=== PATIENT | male | born 1960 | race Asian ===

== ENCOUNTER 2019-12-20 17:45 | Emergency (ER) | payer OTHER ==
[2019-12-20 17:56] VITALS: BP 150/87
--- NOTE | 2019-12-20 17:56 | Emergency Department Report ---
Blank Doc - Documentation Documentation: 59-year-old male that presents with abdominal pain. This initial assessment/diagnostic orders/clinical plan/treatment(s) is/are subject to change based on patient's health status, clinical progression and re- assessment by fellow clinical providers in the ED. Further treatment and workup at subsequent clinical providers discretion. Patient/guardians urged not to elope from the ED as their condition may be serious if not clinically assessed and managed. Initial orders include: 1- Patient sent to [facility] for further evaluation and treatment 2- labs 3- UA
[2019-12-20] MEDS ORDERED: DICYCLOMINE 10 MG/5 ML ORAL LIQD PO ONE (20:23)
[2019-12-20] MEDS ORDERED: FAMOTIDINE 20 MG TAB PO ONE (20:23)
--- NOTE | 2019-12-20 20:25 | Emergency Department Report ---
ED Abdominal Pain HPI - General Chief Complaint: Abdominal Pain Stated Complaint: STOMACH PAIN Time Seen by Provider: 12/20/19 17:55 Source: patient Mode of arrival: Ambulatory Limitations: No Limitations - History of Present Illness Initial Comments: This is a 59-year-old male who presents the ED complaining of upper abdominal pain that started this morning after taking his blood pressure medications. Patient states he took 2 pills this morning and shortly after that started experiencing upper abdominal pain. Patient states he was not able to eat patient tried to eat soup and was unable to. Patient denies nausea vomiting or diarrhea. Patient states pain is localized to the upper abdominal subumbilical region with no radiation elsewhere. Patient does have a recent surgery history of heart surgery that was completed last year. Otherwise patient has no other medical history other than hypertension which is controlled with medication. He denies fever/chills/shortness of breath chest pain or any other symptoms MD Complaint: abdominal pain - Related Data Previous Rx's Medication Instructions Recorded Last Taken Type Dicyclomine [Bentyl] 20 mg PO TID #30 tablet 12/20/19 Unknown Rx Ondansetron [Zofran Odt] 4 mg PO Q8HR #20 tab.rapdis 12/20/19 Unknown Rx Allergies Allergy/AdvReac Type Severity Reaction Status Date / Time No Known Allergies Allergy Verified 12/20/19 20:27 ED Review of Systems ROS: Stated complaint: STOMACH PAIN Other details as noted in HPI Comment: All other systems reviewed and negative ED Past Medical Hx - Past Medical History Hx Hypertension: Yes - Surgical History Hx Open Heart Surgery: Yes (2019) - Social History Smoking Status: Never Smoker Substance Use Type: None - Medications Home Medications: Home Medications Medication Instructions Recorded Confirmed Last Taken Type Dicyclomine [Bentyl] 20 mg PO TID #30 tablet 12/20/19 Unknown Rx Ondansetron [Zofran Odt] 4 mg PO Q8HR #20 tab.rapdis 12/20/19 Unknown Rx ED Physical Exam - General Limitations: No Limitations General appearance: alert, in no apparent distress - Head Head exam: Present: atraumatic, normocephalic - Eye Eye exam: Present: normal appearance - ENT ENT exam: Present: mucous membranes moist - Neck Neck exam: Present: normal inspection - Respiratory Respiratory exam: Present: normal lung sounds bilaterally. Absent: respiratory distress - Cardiovascular Cardiovascular Exam: Present: regular rate, normal rhythm. Absent: systolic murmur, diastolic murmur, rubs, gallop - GI/Abdominal GI/Abdominal exam: Present: soft, distended, tenderness (Mild to palpation of the right upper abdomen), guarding, normal bowel sounds. Absent: organomegaly, mass, bruit - Rectal Rectal exam: Present: deferred - Extremities Exam Extremities exam: Present: normal inspection - Back Exam Back exam: Present: normal inspection - Neurological Exam Neurological exam: Present: alert, oriented X3 - Psychiatric Psychiatric exam: Present: normal affect, normal mood - Skin Skin exam: Present: warm, dry, intact, normal color. Absent: rash ED Course Vital Signs 12/20/19 12/20/19 17:52 23:12 Temperature 97.9 F Pulse Rate 84 86 Respiratory 16 16 Rate Blood Pressure 150/87 O2 Sat by Pulse 99 99 Oximetry ED Medical Decision Making - Lab Data Result diagrams: 12/20/19 20:12/20/19 20: Laboratory Last Values WBC 11.1 K/mm3 (4.5-11.0) H 12/20/19 20: RBC 5.67 M/mm3 (3.65-5.03) H 12/20/19 20: Hgb 19.6 gm/dl (11.8-15.2) H 12/20/19 20: Hct 57.2 % (35.5-45.6) H 12/20/19 20: MCV 101 fl (84-94) H 12/20/19 20: MCH 35 pg (28-32) H 12/20/19 20: MCHC 34 % (32-34) 12/20/19 20: RDW 12.7 % (13.2-15.2) L 12/20/19 20: Plt Count 187 K/mm3 (140-440) 12/20/19 20: Lymph % (Auto) 13.9 % (13.4-35.0) 12/20/19 20: [place] % (Auto) 8.2 % (0.0-7.3) H 12/20/19 20: Eos % (Auto) 1.0 % (0.0-4.3) 12/20/19 20: Baso % (Auto) 0.5 % (0.0-1.8) 12/20/19 20: Lymph # 1.5 K/mm3 (1.2-5.4) 12/20/19 20: [place] # 0.9 K/mm3 (0.0-0.8) H 12/20/19 20: Eos # 0.1 K/mm3 (0.0-0.4) 12/20/19 20: Baso # 0.1 K/mm3 (0.0-0.1) 12/20/19 20: Seg Neutrophils % 76.4 % (40.0-70.0) H 12/20/19 20: Seg Neutrophils # 8.4 K/mm3 (1.8-7.7) H 12/20/19 20: Sodium 136 mmol/L (137-145) L 12/20/19 20: Potassium 4.6 mmol/L (3.6-5.0) 12/20/19: Chloride 99.1 mmol/L (98-107) 12/20/19: Carbon Dioxide 20 mmol/L (22-30) L 12/20/19 20: Anion Gap 22 mmol/L 12/20/19 20: BUN 19 mg/dL (9-20) 12/20/19 20: Creatinine 1.3 mg/dL (0.8-1.5) 12/20/19 20: Estimated GFR 57 ml/min 12/20/19 20: BUN/Creatinine Ratio 15 % 12/20/19 20: Glucose 102 mg/dL (75-100) H 12/20/19 20: Calcium 9.7 mg/dL (8.4-10.2) 12/20/19 20: Total Bilirubin 0.70 mg/dL (0.1-1.2) 12/20/19 20: AST 47 units/L (5-40) H 12/20/19 20: ALT 33 units/L (7-56) 12/20/19 20: Alkaline Phosphatase 49 units/L (35-129) 12/20/19 20: Total Protein 8.0 g/dL (6.3-8.2) 12/20/19 20: Albumin 4.3 g/dL (3.9-5) 12/20/19 20: Albumin/Globulin Ratio 1.2 % 12/20/19 20: Lipase 128 units/L (13-60) H 12/20/19 20: Urine Color Yellow (Yellow) 12/20/19: Urine Turbidity Clear (Clear) 12/20/19: Urine pH 6.0 (5.0-7.0) 12/20/19: Ur Specific [place] 1.019 (1.003-1.030) 12/20/19 Urine Protein <15 mg/dl mg/dL (Negative) 12/20/19: Urine Glucose (UA) Neg mg/dL (Negative) 12/20/19 Urine Ketones Neg mg/dL (Negative) 12/20/19 Urine Blood Mod (Negative) 12/20/19: Urine Nitrite Neg (Negative) 12/20/19: Urine Bilirubin Neg (Negative) 12/20/19: Urine Urobilinogen < 2.0 mg/dL (<2.0) 12/20/19: Ur Leukocyte Esterase Neg (Negative) 12/20/19: Urine WBC (Auto) 60.0 /HPF (0.0-6.0) H 12/20/19: Urine RBC (Auto) 32.0 /HPF (0.0-6.0) 12/20/19 20: Urine Bacteria (Auto) 1+ /HPF (Negative) 12/20/19: Laboratory Last Values WBC 11.1 K/mm3 (4.5-11.0) H 12/20/19: RBC 5.67 M/mm3 (3.65-5.03) H 12/20/19 20: Hgb 19.6 gm/dl (11.8-15.2) H 12/20/19 20: Hct 57.2 % (35.5-45.6) H 12/20/19 20: MCV 101 fl (84-94) H 12/20/19 20: MCH 35 pg (28-32) H 12/20/19 20: MCHC 34 % (32-34) 12/20/19 20: RDW 12.7 % (13.2-15.2) L 12/20/19 20: Plt Count 187 K/mm3 (140-440) 12/20/19 20: Lymph % (Auto) 13.9 % (13.4-35.0) 12/20/19 20: [place] % (Auto) 8.2 % (0.0-7.3) H 12/20/19 20: Eos % (Auto) 1.0 % (0.0-4.3) 12/20/19 20: Baso % (Auto) 0.5 % (0.0-1.8) 12/20/19 20: Lymph # 1.5 K/mm3 (1.2-5.4) 12/20/19 20: [place] # 0.9 K/mm3 (0.0-0.8) H 12/20/19 20: Eos # 0.1 K/mm3 (0.0-0.4) 12/20/19 20: Baso # 0.1 K/mm3 (0.0-0.1) 12/20/19 20: Seg Neutrophils % 76.4 % (40.0-70.0) H 12/20/19 20: Seg Neutrophils # 8.4 K/mm3 (1.8-7.7) H 12/20/19 20: Sodium 136 mmol/L (137-145) L 12/20/19 20: Potassium 4.6 mmol/L (3.6-5.0) 12/20/19 20: Chloride 99.1 mmol/L (98-107) 12/20/19: Carbon Dioxide 20 mmol/L (22-30) L 12/20/19 20: Anion Gap 22 mmol/L 12/20/19 20: BUN 19 mg/dL (9-20) 12/20/19 20: Creatinine 1.3 mg/dL (0.8-1.5) 12/20/19 20: Estimated GFR 57 ml/min 12/20/19 20: BUN/Creatinine Ratio 15 % 12/20/19 20: Glucose 102 mg/dL (75-100) H 12/20/19 20: Calcium 9.7 mg/dL (8.4-10.2) 12/20/19 20:26 Total Bilirubin 0.70 mg/dL (0.1-1.2) 12/20/19 20: AST 47 units/L (5-40) H 12/20/19 20: ALT 33 units/L (7-56) 12/20/19 20: Alkaline Phosphatase 49 units/L (35-129) 12/20/19 20: Total Protein 8.0 g/dL (6.3-8.2) 12/20/19 20: Albumin 4.3 g/dL (3.9-5) 12/20/19 20: Albumin/Globulin Ratio 1.2 % 12/20/19 20: Amylase 109 units/L (27-131) 12/20/19 21: Lipase 128 units/L (13-60) H 12/20/19 20: Urine Color Yellow (Yellow) 12/20/19 20: Urine Turbidity Clear (Clear) 12/20/19 20: Urine pH 6.0 (5.0-7.0) 12/20/19 20: Ur Specific [place] 1.019 (1.003-1.030) 12/20/19 20: Urine Protein <15 mg/dl mg/dL (Negative) 12/20/19 20:41 Urine Glucose (UA) Neg mg/dL (Negative) 12/20/19 20: Urine Ketones Neg mg/dL (Negative) 12/20/19 20: Urine Blood Mod (Negative) 12/20/19 20: Urine Nitrite Neg (Negative) 12/20/19 20: Urine Bilirubin Neg (Negative) 12/20/19 20: Urine Urobilinogen < 2.0 mg/dL (<2.0) 12/20/19 20:41 Ur Leukocyte Esterase Neg (Negative) 12/20/19 20: Urine WBC (Auto) 60.0 /HPF (0.0-6.0) H 12/20/19 20: Urine RBC (Auto) 32.0 /HPF (0.0-6.0) 12/20/19 20: Urine Bacteria (Auto) 1+ /HPF (Negative) 12/20/19 20: - Radiology Data Radiology results: report reviewed, image reviewed CT ABDOMEN AND PELVIS WITHOUT CONTRAST INDICATION / CLINICAL INFORMATION: Upper abdomen pain. TECHNIQUE: Axial CT images were obtained through the abdomen and pelvis without IV contras t. All CT scans at this location are performed using CT dose reduction for ALARA by means of autom ated exposure control. COMPARISON: None available. FINDINGS: LOWER CHEST: No significant abnormality. LIVER: No significant abnormality. GALLBLADDER: No significant abnormality. BILE DUCTS: No significant abnormality. PANCREAS: No significant abnormality. SPLEEN: No significant abnormality. ADRENALS: No significant abnormality. RIGHT KIDNEY and URETER: No significant abnormality. LEFT KIDNEY and URETER: No significant abnormality. STOMACH and SMALL BOWEL: No significant abnormality. COLON: No significant abnormality. APPENDIX: Normal appendix is seen. PERITONEUM: No free fluid. No free air. No fluid collection. LYMPH NODES: No adenopathy. AORTA and ARTERIES: Mild atherosclerosis. No aneurysm. IVC and VEINS: Unremarkable by noncontrast evaluation. URINARY BLADDER: No significant abnormality. REPRODUCTIVE ORGANS: No significant abnormality. ADDITIONAL FINDINGS: None. SKELETAL SYSTEM: No acute abnormality. Calcific bilateral hamstring tendinopathy. IMPRESSION: 1. No acute abnormality by noncontrast CT.. Signer Name: Jeremy Wells MD Signed: 12/20/2019 8:41 PM Workstation Name: [id number] Transcribed By: HERNANDEZ Dictated By: Jeremy Wells MD Electronically Authenticated By: Jeremy Wells MD Signed Date/Time: 12/20/192040 - Medical Decision Making 59-year-old male presents with abdominal pain secondary to . All labs were completed, CT scan of the abdomen and pelvis Patient does note that he takes omeprazole daily for acid reflux Labs were within normal limits, elevated lipase, amylase normal. CT scan of the abdomen pelvis shows no acute findings, see report above - Differential Diagnosis Pancreatitis, gastritis, gastroenteritis, pancreas mass, gallstone Critical care attestation.: If time is entered above; I have spent that time in minutes in the direct care of this critically ill patient, excluding procedure time. ED Disposition Clinical Impression: Abdominal pain, Gastritis Disposition: - TO HOME OR SELFCARE Is pt being admited?: No Does the pt Need Aspirin: No Condition: Stable Instructions: Gastritis (ED), Gastroenteritis (ED), Abdominal Pain (ED) Additional Instructions: Make sure to follow up with the primary care physician as discussed. 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 If you have any worsening symptoms or develop new symptoms please return to ED immediately. Prescriptions: Dicyclomine [Bentyl] 20 mg PO TID #30 tablet Ondansetron [Zofran Odt] 4 mg PO Q8HR #20 tab.rapdis Referrals: PRIMARY CARE, [Primary Care Provider] - 3-5 Days [facility] [Provider Group] - 3-5 Days [facility] [Provider Group] - 3-5 Days Forms: Accompanied Note, Work/School Release Form(ED) Time of Disposition: 22:48
--- NOTE | 2019-12-20 20:46 | Cat Scan Report ---
CT ABDOMEN AND PELVIS WITHOUT CONTRAST INDICATION / CLINICAL INFORMATION: Upper abdomen pain. TECHNIQUE: Axial CT images were obtained through the abdomen and pelvis without IV contrast. All CT scans at [facility] location are performed using CT dose reduction for ALARA by means of automated exposure control. COMPARISON: None available. FINDINGS: LOWER CHEST: No significant abnormality. LIVER: No significant abnormality. GALLBLADDER: No significant abnormality. BILE DUCTS: No significant abnormality. PANCREAS: No significant abnormality. SPLEEN: No significant abnormality. ADRENALS: No significant abnormality. RIGHT KIDNEY and URETER: No significant abnormality. LEFT KIDNEY and URETER: No significant abnormality. STOMACH and SMALL BOWEL: No significant abnormality. COLON: No significant abnormality. APPENDIX: Normal appendix is seen. PERITONEUM: No free fluid. No free air. No fluid collection. LYMPH NODES: No adenopathy. AORTA and ARTERIES: Mild atherosclerosis. No aneurysm. IVC and VEINS: Unremarkable by noncontrast evaluation. URINARY BLADDER: No significant abnormality. REPRODUCTIVE ORGANS: No significant abnormality. ADDITIONAL FINDINGS: None. SKELETAL SYSTEM: No acute abnormality. Calcific bilateral hamstring tendinopathy. IMPRESSION: 1. No acute abnormality by noncontrast CT.. Signer Name: Jeremy Wells MD Signed: 12/20/2019 8:41 PM Workstation Name: [email or web address]
[2019-12-20 20:50] LABS: Bacteria,Urine 1+ /HPF (Negative); Bilirubin,Urine NEG (Negative); Blood,Urine MOD (Negative); Color,Urine Yellow (Yellow); Protein,Urine <15 mg/dL mg/dL (Negative); Urobilinogen,Urine < 2.0 mg/dL (<2.0)
[2019-12-20 20:51] LABS: Basophils # (Auto) 0.1 K/mm3 (0.0-0.1); Basophils % (Auto) 0.5 % (0.0-1.8); Eosinophils # (Auto) 0.1 K/mm3 (0.0-0.4); Hematocrit 57.2 % (35.5-45.6); Hemoglobin 19.6 gm/dl (11.8-15.2); Lymphocytes # (Auto) 1.5 K/mm3 (1.2-5.4); Lymphocytes % (Auto) 13.9 % (13.4-35.0); Mean Corpuscular HGB Conc 34 % (32-34); Mean Corpuscular Volume 101 fl (84-94); Monocytes # (Auto) 0.9 K/mm3 (0.0-0.8); Monocytes % (Auto) 8.2 % (0.0-7.3); Platelet Count 187 K/mm3 (140-440); Red Blood Count 5.67 M/mm3 (3.65-5.03); Red Cell Distribution Width 12.7 % (13.2-15.2)
[2019-12-20] MEDS ORDERED: SODIUM CHLORIDE 0.9% 1000 ML 1,000 ML IV ONE (20:53)
[2019-12-20] MEDS ORDERED: FAMOTIDINE 20 MG/2 ML INJ IV ONE (20:53)
[2019-12-20 21:06] LABS: Albumin 4.3 g/dL (3.9-5); Calcium 9.7 mg/dL (8.4-10.2)
[2019-12-20] MEDS ORDERED: METOCLOPRAMIDE 10 MG/2 ML INJ IV ONE (21:27)
== END 2019-12-20 23:12 | disposition home or self-care (01) ==
LOC: ED 17:45
DX: K29.70 Gastritis, unspecified, without bleeding (principal); I10 Essential (primary) hypertension
CPT/HCPCS: 36415; 74176; 80053; 81001; 82150; 83690; 85025; 87086; 96361; 96374; 96375; 99284; J2765; J7030